=== PATIENT | male | born 1935 | race Caucasian/White ===

== ENCOUNTER → 2017-09-14 | Outpatient (CLI) | payer OTHER, BC ==
[2017-09-14] VITALS (7 sets, daily range): BP systolic 101–123; BP diastolic 57–65
[~2017-09-14] MED LIST: CALCIUM 600 +1 EA16 PO; COLACE100 MG PO; DONEPEZIL HCL5 MG PO; ECOTRIN325 MG PO; GLUCOSAMINE H1500 MG PO; JAKAFI10 MG PO; LEVOTHYROXINE175 MCG PO; LISINOPRIL30 MG PO; MIRALAX17 GM PO; NAMENDA XR28 MG PO; PLAVIX75 MG PO; PRAVASTATIN SOD20 MG PO; TRAZODONE HCL100 MG PO
== END | disposition home or self-care (01) ==
LOC: IVINF 10:46
DX: D45 Polycythemia vera (principal); D47.4 Osteomyelofibrosis
CPT/HCPCS: 36430; 86999; 96374; J1940